=== PATIENT | male | born 1955 | race Caucasian/White ===

== ENCOUNTER 2021-08-13 08:31 | Emergency (ER) | payer OTHER ==
[~2021-08-13] VITALS: Ht 188 cm; Wt 110.6 kg
[~2021-08-13 08:31] MED LIST: ACIPHEX20 MG PO; ASPIRIN EC81 MG PO; FISH OIL 1,0001 EAC2 NG; IBUPROFEN600 MG PO; MAPAP325 MG PO; NORVASC2.5 MG PO; OCUVITE TABLET1 EAC1 PO; OXYCODON-ACETA1 EAC2 PO; RED YEAST RICE600 M1 PO; VITAMIN C100 MG PO
== END 2021-08-13 09:50 | disposition home or self-care (01) ==
LOC: ED 08:31
DX: U07.1 COVID-19 (principal); I10 Essential (primary) hypertension; Z88.5 Allergy status to narcotic agent; Z88.8 Allergy status to other drugs, medicaments and biological substances; Z79.899 Other long term (current) drug therapy
CPT/HCPCS: 99283